=== PATIENT | male | born 1950 | race Caucasian/White ===

== ENCOUNTER → 2020-10-20 | Outpatient (CLI) | payer OTHER, BC ==
[~2020-10-20] VITALS: Ht 177.8 cm; Wt 90.7 kg
[~2020-10-20] MED LIST: AMPHETAMINE SAL30 MG PO; CRESTOR40 MG PO; DULOXETINE HCL30 MG PO; KLONOPIN0.5 MG PO; LEVO-T100 MCG PO; METFORMIN HCL500 M3 PO; PROTONIX40 M2 PO; REMERON 30 MG T30 M1 PO
[2020-10-20 10:29] VITALS: BP 154/95
--- NOTE | 2020-10-20 11:53 | NUR ---
Pain Clinic Assessment: 1. History of Osteoarthritis: Not Applicable History of Rheumatoid Arthritis: Not Applicable 2. Height: 5 ft. 10 in. 177.8 cm. Weight: 200.0 lb. oz. 90.720 kg. Patient's BMI: 28.7 3. Vital Signs: BP: 154/95 Pulse: 83 Resp: 16 Temp: 02 Sat: 98 ECG Mon: 4. Pain Intensity: 6 5. Fall Risk: Dizziness: N Needs help standing or walking: N Fallen in the last 3 months: N Fall risk comments: 6. Patient on Blood Thinner: None 7. History of Hypertension: N 8. Opioid Therapy greater than 6 weeks: N Opiate Contract Signed: 9. Risk Assessment Tool Provided: LOW-0 10. Functional Assessment Tool: 37/ 11. Recreational Drug Use: Never Drug Type: Tobacco Use: Former Smoker Tobacco Type: Cigarettes Amount or Packs/day: How Many Years: Alcohol Use: No Frequency: Quant:
--- NOTE | 2020-10-21 08:07 | HPC ---
[facility] [address] [address] PAIN MANAGEMENT CONSULTATION Name: RYAN MCBRIDE Room #: REG STEVE Seamus.#: [id number] Admission: 10/20/20 Attend Phys: Phill Alberts DO Discharge: Date of : 46 Report #: [id number] THIS REPORT FOR: cc: Beny Johns MD, Rhonda MD Johnson, James E. DO ~ cc: Aisha Jara MD DATE OF SERVICE: 10/20/2020 CHIEF COMPLAINT: Rectal pain. HISTORY OF PRESENT ILLNESS: As you know, the patient is a 69-year-old male reporting longstanding history of chronic rectal pain. He has undergone multiple hemorrhoid treatments to address this issue and has been given the diagnosis of grade III hemorrhoids. The patient has continued to experience spasming of the rectal area, which prompted a referral to our clinic as he was not improving with conservative treatment. He has trialled minimal treatment from an oral standpoint. He has tried bnji-ejj-tmjvpyy medications with minimal improvement in symptoms. He has been diagnosed with levator spasms, which is believed to be the source of symptoms. He was referred to our clinic to discuss possibly undergoing a ganglion impar block in hopes of improving pain. The patient was under the impression that a nerve block could be provided to address the levator ani though this would only provide transient improvement of long-term benefit. Even if it did provide improvement, there would be no long-term benefit and no definitive treatment with that issue. The patient has been referred to our clinic by Dr. Jara to discuss possible contribution of the ganglion impar addressing his pain. The patient reports the pain is steady. Describes the pain as burning, cramping, aching, and tender. Places current pain score 6/10 daily, average at 7/10, worst pain has been is 9/10. The patient states that nothing tends to exacerbate symptoms and nothing has improved the pain. He has been referred to our service to discuss a ganglion impar block in hopes of improving pain. PAST MEDICAL HISTORY: 1. Hypothyroidism. 2. RSD. 3. Depression. 4. 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 5. Chronic neuropathy. 6. Coronary artery disease, status post percutaneous stenting. 7. Degenerative joint disease of the lumbar spine. 8. Lumbar radiculopathy. 9. Sleep apnea. 10. Diabetes mellitus. [facility] [address] [place] [address] PAIN MANAGEMENT CONSULTATION Name: RYAN MCBRIDE Room #: MARGO Moreno#: [id number] Admission: 10/20/20 Attend Phys: Phill Alberts DO Discharge: Date of : 46 Report #: [id number] PAST SURGICAL HISTORY: 1. Colostomy with a sigmoid takedown. 2. Appendectomy. 3. Knee surgery. 4. Lumbar spine surgery. 5. Fusion of the cervical spine. 6. Left humerus open reduction and internal fixation. 7. Colon biopsies. 8. Hemorrhoid treatments x3. SOCIAL HISTORY: The patient denies tobacco, alcohol or IV or illicit drug use. He retired about 15 years ago, not receiving workmen's compensation nor is he trying to obtain disability benefits. Not in litigation in regards to pain. He is unaccompanied at today's visit. REVIEW OF SYSTEMS: Positive for painful bowel movements, rectal pain, constipation, thyroid disease, non-insulin dependent diabetes mellitus type 2. All other review of systems negative per 12-point review of systems other than those listed in history of present illness. Pain impact score 37-70, moderate interference of daily activities secondary to pain. ALLERGIES: No known drug allergies. CURRENT MEDICATIONS: Amphetamine salts 30 mg once a day, mirtazapine 30 mg once a day, clonazepam 0.5 mg b.i.d., pantoprazole 40 mg per day, rosuvastatin 40 mg per day, duloxetine 30 mg once a day, levothyroxine 100 mcg per day, metformin 500 mg b.i.d. IMAGING: No imaging available. PQRS: The patient has arthritic changes of the cervical spine, lumbar spine, bilateral hips and knees. No rheumatoid arthritis. Today, he is placing current pain score at 6/10, he is not a fall risk, has not had a fall in last 3 months. He is not on any blood thinners. He reports he is not treated for hypertension. He is on no chronic opioids, has a low opioid addiction potential. Pain impact is 37-70, moderate interference of daily activities secondary to pain. PHYSICAL EXAMINATION: VITAL SIGNS: Blood pressure 154/95, pulse is 83, respiratory rate 16 and unlabored. The patient 98% on room air. Height 5 feet 10 inches tall, weight 200 pounds, BMI calculated 28.7. GENERAL: Well-developed, well-nourished, well-hydrated 69-year-old male, appearing stated age, pain is rated up to 6/10. [facility] [address] [place] [address] PAIN MANAGEMENT CONSULTATION Name: RYAN MCBRIDE Room #: REG [facility]#: [id number] Admission: 10/20/20 Attend Phys: Phill Alberts DO Discharge: Date of : 46 Report #: [id number] HEENT: Normocephalic, atraumatic. Pupils equal, round and responsive to light. Speech is fluent. The patient deemed a good historian. He is wearing a mask in compliance with COVID-19 regulations. LUNGS: Clear, no wheeze, rhonchi or rales. CARDIOVASCULAR: Regular. No appreciable gallop, no rub. ABDOMEN: Soft, nontender, nondistended. EXTREMITIES: Show no clubbing, no cyanosis, no edema. MUSCULOSKELETAL: Lower extremity strength equal and symmetrical 5/5. Muscle bulk and tone is equal and symmetrical in lower extremities. Deep tendon reflexes are symmetrical at patella and Achilles, but diminished bilaterally 1/4. There is mild palpatory tenderness over the coccyx negative over the sacrum. ASSESSMENT: 1. Coccydynia. 2. Chronic rectal pain. PLAN: 1. Based on today's physical exam and history, the patient was provided the description the patient uses in regards to pain. It would appear he is suffering from more rectal pain and coccydynia. The patient has undergone hemorrhoid treatment x3, but has noted no improvement in his chronic rectal pain. He has a diagnosis of coccydynia and a diagnosis of spasming of the levator ani and grade III hemorrhoids. The hemorrhoids have been treated surgically and have been improved, but the patient is left with chronic rectal pain. Given the fact the patient was seen no benefit with conservative treatment through his colorectal surgeon, he was referred to our clinic to trial a ganglion impar block in hopes of improving symptoms. The patient was under the impression that we will be providing a levator ani nerve block to improve his overall pain, though this injection is not one provided through pain management. Even if the nerve block was performed, the patient will only see improvement in symptoms for a short period of time up to approximately 4 hours with complete return of symptoms. When reviewing the referral from the colorectal surgeon, the request was for addressing his coccydynia and the patient was advised that treatment would be a ganglion impar block in hopes of improving pain which may improve his rectal symptoms as well. After a very long discussion with the patient today, he chose to undergo the ganglion impar block under fluoroscopic guidance. The patient has been advised risks and benefits of ganglion impar block. These risks include but are not necessarily limited to bleeding, bruising, infection, worsening pain, no relief of pain, also risk of temporary or permanent muscle weakness, temporary or permanent nerve damage, possible loss of sphincter control and rectal function as well as . The patient states understood and wished to proceed. 2. No medication changes made at today's visit. [place] [id number] PAIN MANAGEMENT CONSULTATION Name: RYAN MCBRIDE Room #: REG CLI Josh#: [id number] Admission: 10/20/20 Attend Phys: Phill Alberts DO Discharge: Date of : 46 Report #: [id number] current medical therapy as prior prescribed. We did discuss the possibility of having the patient receive medication in the form of a B and O suppository, which could be quite beneficial. We will trial the patient on that medication if it is beneficial. He can follow up with the colorectal team or his primary care to receive refills of that therapy. This could be quite effective at treating his rectal pain directly with minimal side effects systemically. 3. We will see the patient back in followup visit on an as needed basis for possible next in a series of ganglion impar blocks if this is effective for treatment. If symptoms are not improved the ganglion impar block, he can return to discuss the initiation of a B and O suppositories. 4. We wish to thank Dr. Aisha Jara for the opportunity to see this patient in consultation. We will keep you apprised of response to treatment as we address his chronic rectal pain and coccydynia. Again, we wish to thank you for the opportunity to see the patient in consultation. PROCEDURE NOTE DESCRIPTION OF PROCEDURE: Ganglion impar block under fluoroscopic guidance. After obtaining written consent, the patient was taken back to fluoroscopy suite, placed in a prone position. The image intensifier was then brought into position over the sacrum and coccyx area and AP imaging was obtained. The area was marked overlying the injection and prepped and draped in aseptic fashion using chlorhexidine. A lateral view was then obtained to confirm our direction anterior and posterior. A 27-gauge 1-1/4 inch needle was then used to anesthetize skin and subcutaneous tissue with 3 mL of 1% preservative-free lidocaine. A 25-gauge 2-inch needle was advanced under fluoroscopic guidance to the sacrococcygeal ligament. At this point, 1 mL of lidocaine 1% was injected. The needle was advanced through the sacrococcygeal ligament to the anterior surface of the sacrum and coccyx. After negative aspiration for heme, 1 mL of Omnipaque injected. An excellent spread of dye noted within the anterior surface of the sacrum and coccyx overlying the ganglion impar. After negative aspiration for heme, 4 mL of a solution containing 1 mL 40 mg per mL, 40 mg total triamcinolone along with 3 mL bupivacaine 0.5% was injected slowly. Needle was retracted approximately skilled nursing, flushed with 1 mL of bupivacaine 0.5% and then removed. Sterile bandage placed over injection site. The patient was noted to be able to move all 4 extremities after procedure. The patient tolerated the procedure well, carefully escorted to recovery room [address] [place] [address] PAIN MANAGEMENT CONSULTATION Name: RYAN MCBRIDE Room #: REG STEVE Moreno#: [id number] Admission: 10/20/20 Attend Phys: Phill Alberts DO Discharge: Date of : 46 Report #: [id number] stable condition. No apparent complications. After meeting our discharge criteria, the patient discharged home. <ELECTRONICALLY SIGNED> By: Phill Alberts DO 10/21/20 0807 [id number] Phill Alberts DO /nt
== END | disposition home or self-care (01) ==
LOC: PAIN 06:45
PROVIDERS: ATTEND Anesthesiology Pain Medicine
DX: M53.3 Sacrococcygeal disorders, not elsewhere classified (principal); K62.89 Other specified diseases of anus and rectum; G89.29 Other chronic pain; E11.9 Type 2 diabetes mellitus without complications; I25.10 Atherosclerotic heart disease of native coronary artery without angina pectoris; E03.9 Hypothyroidism, unspecified; M19.90 Unspecified osteoarthritis, unspecified site; F32.9 Major depressive disorder, single episode, unspecified; G47.30 Sleep apnea, unspecified; Z98.890 Other specified postprocedural states; Z79.899 Other long term (current) drug therapy; Z98.0 Intestinal bypass and anastomosis status

== ENCOUNTER → 2020-11-03 | Outpatient (CLI) | payer OTHER, BC ==
[~2020-11-03] VITALS: Ht 177.8 cm; Wt 95.2 kg
[~2020-11-03] MED LIST changes: +BELLADONNA-OPI1 EACH RECTAL
--- NOTE | ~2020-11-03 | HPC ---
[facility] [place] [address] PAIN MANAGEMENT CONSULTATION Name: RYAN MCBRIDE Room #: REG STEVE Seamus.#: [id number] Admission: 11/03/20 Attend Phys: Phill Alberts DO Discharge: Date of : 46 Report #: [id number] THIS REPORT FOR: cc: Beny Johns MD, Rhonda MD Johnson, James E. DO ~ cc: Aisha Jara MD DATE OF SERVICE: 11/03/2020 CHIEF COMPLAINT: Rectal pain. HISTORY OF PRESENT ILLNESS: As you know, the patient is a 70-year-old male with longstanding history of chronic rectal pain. He has undergone multiple hemorrhoid treatments to address his issues and given the diagnosis of grade 3 hemorrhoids. He continues to experience spasming of the rectal area. Referred to our clinic to trial a ganglion impar block. The patient underwent that block per the request of the referring surgeon on 10/20/2020. Unfortunately, he received no benefit in symptoms, not even transiently. He returns today with pain level of 6/10. The patient reports pain directly in the rectum. There is no coccydynia. He describes the pain as more of a spasming and burning sensation. He places his current pain at 6/10, daily average up to 9/10. He has had no changes in medication management since our last visit. He returns to discuss options for treatment. ALLERGIES: No known drug allergies. CURRENT MEDICATIONS: Amphetamine salts 30 mg once a day, mirtazapine 30 mg p.o. at bedtime, clonazepam 0.5 mg b.i.d., pantoprazole 40 mg per day, ____ 40 mg per day, duloxetine 30 mg per day, levothyroxine 100 mcg per day, metformin 500 mg b.i.d. SOCIAL HISTORY: The patient continues to deny tobacco, alcohol or IV or illicit drug use. He retired about 15 years ago, unaccompanied today. IMAGING: No new imaging available. PQRS: The patient has known arthritic changes of the cervical spine, lumbar spine, bilateral hips and knees. No rheumatoid arthritis. Pain intensity is reported at 6/10. He is not a fall risk, has not had a fall in last 3 months. He is not on blood thinners nor is he treated for hypertension. He is on no opioids, has a low opioid addiction potential. Pain impact is 37/70, moderate interference of daily activities secondary to pain. PHYSICAL EXAMINATION: VITAL SIGNS: Blood pressure 141/82, pulse is 74, respiratory rate 18 and unlabored. The patient 95% on room air. Height 5 feet 10 inches tall, weight [facility] [address] [place] [address] PAIN MANAGEMENT CONSULTATION Name: RYAN MCBRIDE Room #: REG STEVE Moreno#: [id number] Admission: 11/03/20 Attend Phys: Phill Alberts DO Discharge: Date of : 46 Report #: [id number] 209.8 pounds, BMI calculated 30.1. GENERAL: Well-developed, well-nourished, well-hydrated 70-year-old male appearing stated age, pain is rated today 6/10. HEENT: Normocephalic, atraumatic. Pupils equal, round and responsive. He is wearing a mask in compliance with COVID-19 regulations. EXTREMITIES: Show no clubbing, no cyanosis, no edema. MUSCULOSKELETAL: Lower extremity strength is symmetrical again today. ASSESSMENT: Rectal pain. PLAN: 1. The patient returns today in followup visit having undergone ganglion impar block in an attempt to assist for pain involving the rectum and coccyx area. The patient had no improvement in symptoms with the ganglion impar block. Unfortunately, his symptoms continue unabated. We had discussed at the last visit that if a ganglion impar block provided benefit that we would look to utilizing those on an as needed basis, but unfortunately with lack of efficacy, we would not recommend continuing this process. We had discussed with the patient treatment options in the past. We have minimal treatment options available to address his symptoms as he does not wish to initiate any oral medication to address this issue. We have limited capabilities from a suppository standpoint, but did discuss also with the patient today. He is amenable to trial B and O suppository. 2. The patient was provided a prescription for B and O suppository 1 suppository every day as needed. He can use half to one suppository as necessary. He will watch for side effects with the belladonna and opium combination as they can cause sleepiness, disorientation, confusion and vision changes. He will trial the belladonna. If it is effective, he can follow up with his primary care physician or his colorectal surgeon to continue that treatment. We are hopeful the patient will see benefit with the belladonna and opium suppositories. I did send a prescription via e-scribe to local pharmacy. 3. I will see the patient back in followup visit in 30 days, assuming that the belladonna and opium combination works well. If this is unsuccessful alleviating symptoms, we would recommend he follow up with his colorectal surgeon for options that they may be able to offer. We will keep you apprised of his response. By: [id number] [id number] Phill Alberts DO /anju
[2020-11-03 10:31] VITALS: BP 141/82
--- NOTE | 2020-11-03 10:35 | NUR ---
Pain Clinic Assessment: 1. History of Osteoarthritis: Not Applicable History of Rheumatoid Arthritis: Not Applicable 2. Height: 5 ft. 10 in. 177.8 cm. Weight: 209.8 lb. oz. 95.165 kg. Patient's BMI: 30.1 3. Vital Signs: BP: 141/82 Pulse: 74 Resp: 18 Temp: 02 Sat: 95 ECG Mon: 4. Pain Intensity: 6 5. Fall Risk: Dizziness: N Needs help standing or walking: N Fallen in the last 3 months: N Fall risk comments: 6. Patient on Blood Thinner: None 7. History of Hypertension: N 8. Opioid Therapy greater than 6 weeks: N Opiate Contract Signed: 9. Risk Assessment Tool Provided: LOW-0 10. Functional Assessment Tool: 37/ 11. Recreational Drug Use: Never Drug Type: Tobacco Use: Former Smoker Tobacco Type: Amount or Packs/day: How Many Years: Alcohol Use: No Frequency: Quant:
== END ==
LOC: PAIN 06:40
PROVIDERS: ATTEND Anesthesiology Pain Medicine
DX: K62.89 Other specified diseases of anus and rectum (principal); Z79.899 Other long term (current) drug therapy

== ENCOUNTER → 2020-11-25 | Outpatient (CLI) | payer OTHER, BC ==
[~2020-11-25] VITALS: Ht 177.8 cm; Wt 94.3 kg
--- NOTE | ~2020-11-25 | HPC ---
[facility] [address] [place] [address] PAIN MANAGEMENT CONSULTATION Name: RYAN MCBRIDE Room #: PRE [facility] M..#: [id number] Admission: Attend Phys: Phill Alberts DO Discharge: Date of : 46 Report #: [id number] THIS REPORT FOR: cc: Beny Johns MD, Rhonda MD Johnson, James E. DO ~ DATE OF SERVICE: 11/18/2020 ADDENDUM The patient has contacted our clinic via telephone initially indicating that he felt he had been "shuffled through the system" and he felt he was abandoned by our pain management team. He was contacted by phone via our nursing staff to discuss this with the patient. Apparently, he was upset about the fact that his medications were not covered through his insurance causing a high out of pocket cost for which the patient was unwilling to pay. We then received a letter from the patient indicating similar comments. We reviewed the letter and contact the patient yesterday 11/17/2020 to be seen and discuss his concerns. He was made an appointment today 11/18/2020 at 10:30 a.m. for which the patient did not show to the clinic. Review of the medical record shows that we have had the patient treated two different times in our clinic initially was a consultation per the request of his colorectal surgeon to have the patient undergo a ganglion impar block in hopes of improving coccydynia for which the patient was referred to our clinic. When we saw the patient in clinic, he had indicated that Colorectal Surgery had nothing more to offer him that they were battled by the source of his ongoing symptoms, even though he has undergone 3 different hemorrhoidectomies. The patient was referred to our clinic with concern of coccydynia with reference to the rectum. We discussed with the patient at the time of visit that the ganglion impar block if effective would improve his symptoms of coccydynia, but we have no effect on rectal pain. He chose to go ahead with that injection. We made him a followup appointment for 11/03/2020 where he indicated that he received no improvement in symptoms. The patient denied at that time discussing various treatment options similar to those discussions we had prior, which would include for his reported levator ani spasming, biofeedback pelvic floor, physical therapy, we discussed meditation techniques. There has been some literature indicating possible Botox injections or anal trigger point injections will be beneficial, though we do not offer either of those injections at our clinic. We even discussed the possibility of having the patient to see a pelvic floor surgeon. The patient chose not to follow through with any of these options of treatment. We saw him back with a return visit where we discussed things that we could offer him directly including prescriptions for topical local anesthetic such as 5% lidocaine to be applied per rectum. We discussed the possibility of utilizing hydrocortisone cream directly to the rectal area. We discussed opioid medications for which the patient was unwilling to consider oral medication therapy. We even discussed that oral nonsteroidal anti-inflammatories had a benefit, though the patient again did not wish to initiate oral medication management. We discussed [address] [address] PAIN MANAGEMENT CONSULTATION Name: RYAN MCBRIDE Room #: PRE STEVE Moreno#: [id number] Admission: Attend Phys: Phill Alberts DO Discharge: Date of : 46 Report #: [id number] with the patient that we have had good effects with B and O suppositories for rectal pain. We provided the patient a prescription for the medication. The patient reported that his insurance would not cover that medication after attempting to pick the medication up to local pharmacy. We provided the patient with two different alternative waist to obtain that medication. He could certainly pay peralta for the medication as this is uncovered by his insurance. We also gave him good RX way to reduce the cost of medication. We spent over two and a half hours of time attempting to obtain a prior authorization with two different attempts at that authorization without success. His insurance would not be willing to cover B and O suppositories for rectal pain. Unfortunately, the patient's insurance is not providing good coverage for treatment for rectal symptoms. We did locate a compounding pharmacy, [facility], who would be willing to compounded a suppository for the patient and we made those any enquiries today 11/18/2020 to discuss with the patient when he returned, but the patient did not show to the clinic for discussion. We found the medication can be compounded for about $200 a month, which is a significant settings over the B and O suppository prices he was quoted, but again the patient did not show to the clinic today. I had made today's appointment for the patient to discuss the defamatory statements he had made to my nursing staff in regard to our treatment for his chronic rectal pain via the telephone conversations. We are going to discuss the letter and the potential for slender based on the information in that letter which is inconsistent with the medical record and the treatment of this patient. Our intention is to provide information to our legal compliance officer in regard to his complaints. By: [id number] Phill Alberts, /nt
--- NOTE | ~2020-11-25 | HPC ---
[facility] [place] [address] PAIN MANAGEMENT CONSULTATION Name: RYAN MCBRIDE MIKE Room #: REG STEVE Moreno#: [id number] Admission: 11/25/20 Attend Phys: Phill Alberts DO Discharge: Date of : 46 Report #: [id number] THIS REPORT FOR: cc: Preston Resendiz MD, John M. MD Johnson, James E. DO ~ cc: Aisha Jara MD DATE OF SERVICE: 11/25/2020 REFERRING PHYSICIAN: Dr. Aisha Jara. CHIEF COMPLAINT: Rectal pain. HISTORY OF PRESENT ILLNESS: As you know, the patient is a 70-year-old male who was seen in consultation per the request of his neurosurgeon to undergo ganglion impar block under fluoroscopic guidance. The patient underwent that block per the request of the surgeon on 10/20/2020. Unfortunately, the patient did not report much in the way of improvement in symptoms. He returned in followup visit on 11/03/2020 where we provide the patient with a suppository medication to address his rectal pain directly as he did not wish to trial any other treatment at that time. The patient was given a prescription of B and O suppositories to initiate treatment via rectal administration. The patient states that his insurance was unwilling to cover the medication. The hospital nursing staff attempted to obtain authorizations through the insurer spending over 2-1/2 hours of time attempting to get the authorization completed. Ultimately, there was no significant coverage for that medication on this patient's specific insurance plan. The patient then contacted our clinic advising us that he felt he had been abandoned and that he felt that he had been shuffled through the service and did not receive appropriate treatment. He also wrote a letter to us indicating similar. I have had him return today to discuss the phone calls and the letter written to us as well as to discuss the options of treatment that we had discussed at the last visit, so that he understood the treatment options that he had available. He returns today in followup visit reporting a pain score of 8/10. There have been no changes in his medication management since our last visit and no changes in his overall condition. ALLERGIES: No known drug allergies. CURRENT MEDICATIONS: Amphetamine salts 30 mg once a day, mirtazapine 30 mg p.o. at bedtime, clonazepam 0.5 mg b.i.d., pantoprazole 40 mg per day, duloxetine 30 mg per day, levothyroxine 100 mcg per day, metformin 500 mg b.i.d. SOCIAL HISTORY: The patient continues to deny tobacco, alcohol, IV or illicit drug use. He retired about 15 years ago. He is unaccompanied today. IMAGING: [place] [address] PAIN MANAGEMENT CONSULTATION Name: RYAN MCBRIDE Room #: REG STEVE Moreno#: [id number] Admission: 11/25/20 Attend Phys: Phill Alberts DO Discharge: Date of : 46 Report #: [id number] PQRS: The patient has known arthritic changes of the cervical spine, lumbar spine, bilateral hips and knees. No rheumatoid arthritis. He is placing pain intensity at 8/10. He is not a fall risk, has not had a fall in last 3 months. He is not on blood thinners nor is he treated for hypertension. He is not on any opioids. He has a low opioid addiction potential based on assessment tool. Pain impact is 37/70, moderate interference of daily activities secondary to pain. PHYSICAL EXAMINATION: VITAL SIGNS: Blood pressure 135/92, pulse 85, respiratory rate 16 and unlabored. The patient 97% on room air. Height 5 feet 10 inches tall, weight 208 pounds, BMI calculated 29.8. GENERAL: Well-developed, well-nourished, well-hydrated 70-year-old male, appearing stated age, placing current pain score at 8/10. HEENT: Normocephalic, atraumatic. Pupils are round. He is wearing a mask in compliance with COVID-19 regulations. EXTREMITIES: Show no clubbing, no cyanosis, no edema. MUSCULOSKELETAL: Lower extremity strength is symmetrical 5/5, intact to light touch from L1 through S2 dermatomes. ASSESSMENT: Chronic rectal pain. PLAN: 1. The patient returns today in followup visit where we have discussed his recent phone calls to our clinic and a letter that we received indicating that he felt that he had been abandoned from our services. The patient states that this was a misunderstanding that he did not intend to utilize this medicolegal terminology that he just felt that he was frustrated and he was "acting out." I have advised the patient that we have turned his information over to our legal activity adjudicator for evaluation. The term abandonment is a concerning term. It is misused in this case and the patient has indicated that he would be more than willing to indicate in letter form or to our legal activity adjudicator that he was mistaken. The patient will likely be contacted by our risk management team to discuss further. 2. In regards to the patient's rectal issues, unfortunately, his insurance will not provide the B and O suppositories at a cost that he could afford. We attempted prior authorizations multiple times and unfortunately they would not be willing to cover it. This is not a fault of our service, nor is the fault of the prescriber that his insurance would not cover this medication. This is a problem that the patient has with his insurance, specifically had he chosen insurance that cover this medication, we would have no issues with therapy. The fact that he cannot obtain a B and O suppository is not significantly problematic. I had contacted [facility], one of the pharmacies here in our area, who are more than willing to compound a suppository that may cost somewhere between $90 and $100 a month, which is a reasonable cost. [address] [address] PAIN MANAGEMENT CONSULTATION Name: RYAN MCBRIDE Room #: REG STEVE Way.#: [id number] Admission: 11/25/20 Attend Phys: Phill Alberts DO Discharge: Date of : 48 Report #: [id number] in medication was intended once we had noted that the coverage of this medication was not going to be forthcoming. We have taken the liberty of contacting [facility] specifically about this compounding medication. They will be more than willing to provide this in less than a 48-hour timeframe. 3. 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 The treatment options for this would be biofeedback pelvic floor physical therapy, meditation, anal trigger point injections, Botox injections, and levator ani massages. The patient has been advised of these in the past, but has not availed himself of any of these treatment options. We also discussed a possible referral for a pelvic floor surgeon as a treatment course, though that would be an aggressive therapy that may not be necessary if the patient avails himself of the earlier recommended treatment options. We also discussed with the patient simple pyjn-upm-ineddld treatment options that could be done. Sitz baths has been shown to be quite beneficial. The use of a perianal and intraanorectal care could be a treatment course as would the use of hydrocortisone cream. The patient is utilizing Preparation-H, which may actually be exacerbating symptoms. I have advised him to discontinue that activity. We did discuss that oral opioids have shown minimal benefit for rectal pain, but could be initiated. The patient has been on excessively high dose opioids in the past, managed by Dr. Beny Mccoy. The patient is no longer seeing Dr. Mccoy and the medications have been discontinued. The patient and I did discuss the use of oral nonsteroidal anti-inflammatories, which have been shown to be beneficial and finally we discussed the suppositories we recommended at the second visit. We spent 30 minutes with the patient today reviewing all of this information and treatment options. Ultimately, we decided to move forward with the suppository treatment recommended with compounding at [facility]. 4. The patient was provided a prescription of compounded morphine suppositories 10 mg total dose. He is to use half suppository at a time. He can use this b.i.d. for a total 1 suppository per day. I have given the patient 30 suppositories to trial. He can pick these up at [facility] in the next 48 hours. He will need to contact [facility] in regards to other timing of production of this compounded agent. He will be utilizing the medication over the next 30 days. We will review efficacy at followup visit. 5. Plan is to see the patient back in followup visit in 30 days. If he is doing well with a suppository therapy, we will release his care back to his colorectal surgeon to continue that option of treatment. By: [id number] Phill Alberts DO /nt
[2020-11-25 10:53] VITALS: BP 135/92
--- NOTE | 2020-11-25 10:57 | NUR ---
Pain Clinic Assessment: 1. History of Osteoarthritis: Not Applicable History of Rheumatoid Arthritis: Not Applicable 2. Height: 5 ft. 10 in. 177.8 cm. Weight: 208.0 lb. oz. 94.348 kg. Patient's BMI: 29.8 3. Vital Signs: BP: 135/92 Pulse: 85 Resp: 16 Temp: 02 Sat: 97 ECG Mon: 4. Pain Intensity: 8 5. Fall Risk: Dizziness: N Needs help standing or walking: N Fallen in the last 3 months: N Fall risk comments: 6. Patient on Blood Thinner: None 7. History of Hypertension: N 8. Opioid Therapy greater than 6 weeks: N Opiate Contract Signed: 9. Risk Assessment Tool Provided: LOW-0 10. Functional Assessment Tool: 37/ 11. Recreational Drug Use: Never Drug Type: Tobacco Use: Former Smoker Tobacco Type: Amount or Packs/day: How Many Years: Alcohol Use: No Frequency: Quant:
== END ==
LOC: PAIN 11-18 06:55
PROVIDERS: ATTEND Anesthesiology Pain Medicine
DX: K62.89 Other specified diseases of anus and rectum (principal); G89.29 Other chronic pain; Z79.899 Other long term (current) drug therapy

== ENCOUNTER → 2021-01-05 | Outpatient (CLI) | payer OTHER, BC ==
[~2021-01-05] VITALS: Ht 177.8 cm; Wt 92.3 kg
[~2021-01-05] MED LIST changes: +MORPHINE SULFAT10 MG RECTAL; +MORPHINE SULFAT20 MG RECTAL
[2021-01-05 10:23] VITALS: BP 140/81
--- NOTE | 2021-01-05 10:28 | NUR ---
Pain Clinic Assessment: 1. History of Osteoarthritis: Not Applicable History of Rheumatoid Arthritis: Not Applicable 2. Height: 5 ft. 10 in. 177.8 cm. Weight: 203.4 lb. oz. 92.262 kg. Patient's BMI: 29.2 3. Vital Signs: BP: 140/81 Pulse: 79 Resp: 18 Temp: 02 Sat: 97 ECG Mon: 4. Pain Intensity: 5 5. Fall Risk: Dizziness: N Needs help standing or walking: N Fallen in the last 3 months: N Fall risk comments: 6. Patient on Blood Thinner: None 7. History of Hypertension: N 8. Opioid Therapy greater than 6 weeks: N Opiate Contract Signed: 9. Risk Assessment Tool Provided: LOW-0 10. Functional Assessment Tool: 37 11. Recreational Drug Use: Never Drug Type: Tobacco Use: Former Smoker Tobacco Type: Amount or Packs/day: How Many Years: Alcohol Use: No Frequency: Quant:
--- NOTE | 2021-01-06 08:41 | HPC ---
[facility] [place] [address] PAIN MANAGEMENT CONSULTATION Name: RYAN MCBRIDE Room #: REG STEVE Seamus.#: [id number] Admission: 01/05/21 Attend Phys: Suzy Mercer Discharge: Date of : 46 Report #: [id number] THIS REPORT FOR: cc: Preston Resendiz MD, John M. MD Hocker,Suzy MCKEON ~ cc: Preston Resendiz MD, Phill Alberts DO, Aisha Jara MD DATE OF SERVICE: 01/05/2021 CHIEF COMPLAINT: Rectal pain. HISTORY OF PRESENT ILLNESS: As you know, this is a 70-year-old gentleman who returns to the pain clinic today for ongoing rectal pain. Dr. Phill Alberts had performed a ganglion impar block that unfortunately was unsuccessful in helping alleviate some of his symptoms. He returned in November and Dr. Alberts trialled him on morphine suppositories. Today, the patient is returning for evaluation of that medication. The patient reports that his pain is located in the rectal area that is a steady, burning, aching, cramping sensation that currently rating at 5/10. He reports that he started at half a suppository a day. That was not beneficial, then he did increase to 1 full suppository a day. He reports 4-5 hours of complete relief with no cramping and less burning sensation, rating his pain score 0/10 at that time. He then reports that it has slowly returned back to baseline. He feels the suppositories are beneficial, but do not last quite 24 hours. Today his pain score is 5/10. The patient was able to obtain his medications from [facility] where they did compound his medication. He is reporting that he had discussed with Kellie about getting the medication from the health benefits specialist, which may be covered by insurance. I explained to the patient that is up to him if he would like us to send it to Kellie or send a renewal of this medication to [facility]. At this time, the health benefits specialist is back ordered on this medication, so he would need a compound medicine from [facility], but I am unsure what the [facility] situation is for this medication. The patient reports that he would like to continue at [facility], but is wondering if he may take more than one suppository a day. The patient also reports that he is going to see Dr. Alix Rivas for possible Botox injections. That is one of the treatment options that Dr. Phill Alberts offered him. Unfortunately, our physicians do not do that procedure and we referred him to Dr. Camp who has since retired. Fortunately, the patient was able to find Dr. Alix Rivas and is scheduled tomorrow for an evaluation. The patient is hopeful that he will be a candidate and then he will no longer need the suppositories, which have been beneficial in decreasing some of his overall discomfort. [address] [address] PAIN MANAGEMENT CONSULTATION Name: RYAN MCBRIDE MIKE Room #: REG STEVE Moreno#: [id number] Admission: 01/05/21 Attend Phys: Suzy Mercer Discharge: Date of : 46 Report #: [id number] ALLERGIES: No known drug allergies. CURRENT LIST OF MEDICATIONS: Morphine sulfate 10 mg rectally, amphetamine salts daily, Remeron, clonazepam, Protonix, Crestor, duloxetine, levothyroxine, metformin, Dulcolax and Colace. PQRS: 1. He denies any osteoarthritis or rheumatoid arthritis. Height is 5 feet 10 inches, weight is 203. BMI is 29. 2. Vital signs: Blood pressure 140/81, pulse is 79, respirations 18, oxygen sat is 97%, pain score is 5/10 currently without medication. 3. Risk assessment: He denies dizziness, does not need assistance with ambulation, has not fallen in the last 3 months. 4. He is not on blood thinners or medication for hypertension. 5. Opiate therapy: He has used the suppositories for the last month. 6. Risk assessment is low. Functional assessment is 37/70. 7. Recreational drug use, he denies. He is a former smoker and does not drink alcohol. According to the prescription monitoring system, he has filled 2 benzodiazepine and methamphetamine from his geriatric psychiatric physician as well as our opioid medication in the last 30 days. PHYSICAL EXAMINATION: GENERAL: This is a well-developed, well-nourished, well-hydrated, 70-year-old gentleman who appears his stated age, placing his current pain score at 5/10 today. HEENT: Normocephalic, atraumatic. Pupils equal, round and reactive. He is wearing a mask for COVID precautions. EXTREMITIES: No clubbing, no cyanosis, no edema. MUSCULOSKELETAL: Lower extremity strength are symmetrical at 5/5, intact to light touch. RECTAL EXAM: No rectal exam was performed. ASSESSMENT: Chronic rectal pain. PLAN: 1. We discussed treatment options with the patient today. The patient finds the morphine sulfate suppositories that have been beneficial in reducing some of his overall cramping and discomfort in his rectal area. He would like to continue this medication, but is wondering if we may provide him with two suppositories a day since they have end of dose failure at about [address] Phill Alberts has agreed to send 60 suppositories. I did discuss with [facility] if they have this medication in stock since the health benefits specialist's do make this. Unfortunately, it is back ordered. The patient reports at this time, he would like to get this medication from [facility] and have them compounded and not go [facility] [address] [place] [address] PAIN MANAGEMENT CONSULTATION Name: RYAN MCBRIDE Room #: REG STEVE Moreno#: [id number] Admission: 01/05/21 Attend Phys: Suzy Mercer Discharge: Date of : 46 Report #: [id number] through [facility] in his insurance. He is unsure if they would be able to obtain the medication as well. Scripts sent electronically for morphine sulfate 10 mg suppositories b.i.d., #60 with no refills. 2. I instructed the patient that he may obtain this medication from his primary care physician or his GI specialist, Dr. Aisha Jara. He was referred to our clinic only to evaluate for an injection or possible plan to help decrease his pain. I believe that we have found that with the morphine, he may return to them and follow up with us only as needed. 3. The patient is scheduled with Dr. Alix Rivas for possible Botox. If he is a candidate and that is successful, then we encouraged the patient to not use the morphine suppositories for pain control. 4. The patient does report that he has been utilizing Dulcolax as well as Colace on a daily basis. I encouraged him to discuss this with Dr. Rivas tomorrow at his appointment. Time spent in consultation with patient, reviewing recent clinical notes and physician reports, physical examination and correlation of findings, medical documentation to determine possible treatment options 18 minutes. Time spent in preparation for appointment, reviewing prescription monitoring reports, previous records and proposed treatment options, reviewing current medication, 5 minutes. Time spent preparing and sending electronic prescriptions with collaborating physician, Dr. Phill Alberts and documentation of visit and plan of treatment 8 minutes. Total time spent 30 minutes. <ELECTRONICALLY SIGNED> By: Suzy Mercer 01/06/21 [id number] Suzy Mercer /nt
== END ==
LOC: PAIN 12-09 07:09
PROVIDERS: ATTEND Clinical Nurse Specialist Adult Health
DX: K62.89 Other specified diseases of anus and rectum (principal); Z79.899 Other long term (current) drug therapy

== ENCOUNTER → 2021-02-16 | Outpatient (CLI) | payer OTHER, BC ==
[~2021-02-16] VITALS: Ht 177.8 cm; Wt 93.9 kg
--- NOTE | ~2021-02-16 | HPC ---
[facility] [address] [address] PAIN MANAGEMENT CONSULTATION Name: RYAN MCBRIDE Room #: REG STEVE Moreno#: [id number] Admission: 02/16/21 Attend Phys: Suzy Mercer Discharge: Date of : 46 Report #: [id number] THIS REPORT FOR: cc: Preston Resendiz MD, John M. MD Hocker,Suzy MCKEON ~ cc: Preston Resendiz MD, Phill Alberts, DATE OF SERVICE: 02/16/2021 CHIEF COMPLAINT: Rectal pain. HISTORY OF PRESENT ILLNESS: As you know, this is a 70-year-old gentleman with ongoing rectal pain and coccydynia. Over several trials of medication and injections, we have found that morphine suppositories have been beneficial in helping alleviate some of his discomfort in his rectal area and he returns today for renewal of this medication. He states he is using the suppository up to twice a day and reports also using ____ and feels that is beneficial. He does complain of an aching, burning, cramping sensation that is worse with any physical exercise. Overall, he is thankful for this medication. He has decided not to trial Botox from Dr. Mitchell. He states that if this becomes less effective, he may consider that in the future. He denies any constipation or daytime somnolence of this medication. He reports he was unable to get in a timely appointment with Dr. Resendiz, so he is here today for a final renewal of this medication that he has compounded for him through [facility]. ALLERGIES: No known drug allergies. CURRENT LIST OF MEDICATIONS: Morphine sulfate 10 mg suppositories b.i.d., amphetamine salts, Remeron, clonazepam, Protonix, Crestor, Cymbalta, levothyroxine, and metformin. PQRS: 1. He has known arthritic issues. His height is 5 feet 10 inches, weight is 207. BMI is 29. 2. Vital signs: Blood pressure 158/79, pulse is 77, respirations 16, oxygen sat is 97%. 3. Pain score is 4/10. 4. Denies dizziness, does not need help walking or standing, has not fallen in the last 3 months. 5. The patient is not on blood thinners and does not take medicine for hypertension. 6. Opioid therapy is greater than 6 weeks. We will consider opioid contract if he returns again. 7. Risk assessment is low. Functional assessment is 37/70. 8. Recreational drug use, he denies. He is not a smoker, does not drink alcohol. [address] [address] PAIN MANAGEMENT CONSULTATION Name: RYAN MCBRIDE Room #: REG STEVE Moreno#: [id number] Admission: 02/16/21 Attend Phys: Suzy Mercer Discharge: Date of : 46 Report #: [id number] According to the prescription monitoring, he is filling appropriately with his morphine. He is due to fill these today. PHYSICAL EXAMINATION: GENERAL: This is alert and orientated, well-developed, well-nourished 70-year-old gentleman who appears his stated age, rating his current pain score today at 4/10. HEENT: Normocephalic, atraumatic. Extraocular eye muscles are intact. He is wearing a mask for COVID precautions. EXTREMITIES: No clubbing, no cyanosis. No appreciable edema. MUSCULOSKELETAL: Lower extremity strength is symmetrical at 5/5. He has pain in his rectal area that was not examined today. ASSESSMENT: 1. Chronic rectal pain. 2. Complex medical management utilizing scheduled opioid medications. We reviewed the fact that opiate medications are being used to provide analgesia adequate to support activities of daily living, not attempting to achieve a specific pain score on the 0-10 Visual Analog Scale. The current opiate medications are providing sufficient analgesia to allow the patient to participate in activities of daily living. The patient is not exhibiting any aberrant behavior suggestive of drug diversion. The patient is not having any adverse reactions to medications. The patient is not suffering from daytime somnolence or mental acuity changes. The patient is managing opiate-induced constipation with appropriate snhl-ses-ljfqvoq agents and dietary considerations. The patient was counseled on concern for caution with operating a motor vehicle while using opiate medications. PLAN: 1. We discussed treatment options with the patient today. The patient returns for renewal of his morphine sulfate suppositories that he has found beneficial in helping alleviate some of his discomfort in his rectal area as a result of several surgeries. We will have Dr. Phill Alberts send this electronically to Dr. Reese to compounding pharmacy for 60 suppositories. I have explained to the patient that he may obtain this medication from his primary care physician or from Dr. Jara; so therefore, he does not need to return. He reports he has an appointment at the end of the year with Dr. Resendiz. He is hopeful then he will take over writing this medication for him. 2. The patient will return if needed at that time if Dr. Resendiz is not willing to write his medication and we will have him sign an opioid agreement. Time spent in consultation with the patient, reviewing recent clinical notes and reports, physical exam and correlation of findings, medical documentation to determine possible treatment options 11 minutes. Time spent in preparation for [facility] [address] [place] [address] PAIN MANAGEMENT CONSULTATION Name: RYAN MCBRIDE Room #: MARGO Moreno#: [id number] Admission: 02/16/21 Attend Phys: Suzy Mercer Discharge: Date of : 46 Report #: [id number] appointment, reviewing prescription monitoring reports, previous records and proposed treatment options, reviewing current medications 5 minutes. Time spent preparing and sending electronic prescriptions with collaborating physician, Dr. Phill Alberts, documentation of visit, 5 minutes. Total time spent 21 minutes. By: [id number] Suzy Mercer /anju
[2021-02-16 10:49] VITALS: BP 158/79
--- NOTE | 2021-02-16 10:52 | NUR ---
Pain Clinic Assessment: 1. History of Osteoarthritis: Not Applicable History of Rheumatoid Arthritis: Not Applicable 2. Height: 5 ft. 10 in. 177.8 cm. Weight: 207.0 lb. oz. 93.895 kg. Patient's BMI: 29.7 3. Vital Signs: BP: 158/79 Pulse: 77 Resp: 16 Temp: 02 Sat: 97 ECG Mon: 4. Pain Intensity: 4 5. Fall Risk: Dizziness: N Needs help standing or walking: N Fallen in the last 3 months: N Fall risk comments: 6. Patient on Blood Thinner: None 7. History of Hypertension: N 8. Opioid Therapy greater than 6 weeks: N Opiate Contract Signed: 9. Risk Assessment Tool Provided: LOW-0 10. Functional Assessment Tool: 37/ 11. Recreational Drug Use: Never Drug Type: Tobacco Use: Former Smoker Tobacco Type: Amount or Packs/day: How Many Years: Alcohol Use: No Frequency: Quant:
== END ==
LOC: PAIN 07:01
PROVIDERS: ATTEND Clinical Nurse Specialist Adult Health
DX: K62.89 Other specified diseases of anus and rectum (principal); Z79.899 Other long term (current) drug therapy